=== PATIENT | male | born 1960 | race Caucasian/White ===

== ENCOUNTER 2024-07-10 06:00 | Observation (INO) ==
[~2024-07-10 06:00] MED LIST: Metoclopramide 5 MG/ML VIAL (10 mg) IV PRN; NS 0.45% 1000 ml BAG 1,000 ML IV SCH; Naloxone 0.4 mg VIAL 0.4 mg/ml 1 ml VIAL IV PRN; Ondansetron 4 mg VIAL 2 MG/ML 2 ml VIAL IV PRN; fentaNYL 100 mcg/2 ml 50 MCG/ML VIAL IV PRN
[2024-07-10 06:58] LABS: Rapid COVID-19 Molecular Undetected (Undetected)
[2024-07-10] MEDS ORDERED: fentaNYL 250 mcg/5 ml 50 MCG/ML 5 ml VIAL (250 MCG) ONE (07:23)
[2024-07-10] MEDS ORDERED: Midazolam 2 mg/2 ml VIAL 1 mg/ml 2 ml VIAL (2 mg) ONE (07:23)
[2024-07-10] MEDS ORDERED: Ondansetron 4 mg VIAL 2 MG/ML 2 ml VIAL IV PRN (07:24)
[2024-07-10] MEDS ORDERED: Propofol 10 MG/ML 20 ML BTL ONE (07:24)
[2024-07-10] MEDS ORDERED: Phenylephrine IV 10 MG/ML 1 ml VIAL ONE (07:45)
[2024-07-10] MEDS ORDERED: Ondansetron 4 mg VIAL 2 MG/ML 2 ml VIAL ONE (07:50)
[2024-07-10] MEDS ORDERED: Dexamethasone IV 4 MG/ML VIAL 1 ml VIAL ONE (07:50)
[2024-07-10] MEDS ORDERED: Furosemide 20 mg/2 ml IV VIAL ONE (09:08)
[2024-07-10] MEDS: NS 0.9% 1000 ml BAG 1,000 ML IV SCH (10:45)
[2024-07-10] MEDS: Gentamicin ADULT 410 MG in NS 0.9% 100 ml BAG 100 ML IVPB ONE (12:12)
[2024-07-10] MEDS: Ampicillin ADVAN 2 GM in NS 0.9% 100 ML 100 ML IVPB ONE (12:12)
[2024-07-10] MEDS: Neomycin/Polym/Bacit TOP OINT 15 GM TOPICAL SCH (12:13)
[2024-07-10] MEDS: Magnesium Hydroxide LIQ 30 ML UDC PO SCH (12:13)
[2024-07-10] MEDS: Acetaminophen IV 1 GM/100ML 1,000 MG/100 ML BAG IV ONE (12:51)
[2024-07-10] MEDS: Lactated Ringers 1000 ml BAG 1,000 ML IV SCH (12:51)
[2024-07-10] MEDS: Buffered Lidocaine 1% SYRIN 1 ml INTRADERM ONE (12:51)
== END 2024-07-11 09:05 | disposition home or self-care (01) ==
LOC: SSU 06:00 → OR 06:00
PROVIDERS: ADMIT Urology; ATTEND Urology